=== PATIENT | male | born 1970 | race African-American/Black ===

== ENCOUNTER 2023-07-10 19:12 | Emergency (ER) | payer BC, OTHER ==
[~2023-07-10 19:12] MED LIST: Iopamidol-370 76% 500 ML MDV (1 ML CHARGE) ONE
[2023-07-10 19:46] LABS: #Basophils Less than 0.03 10x3/uL (0.0-0.2); %Basophils 0.2 % (0.0-1.0); %Lymphocytes 43.9 % (21.0-51.0); %Monocytes 7.6 % (0.0-10.0); %Neutrophils 46.8 % (42.0-75.0); Hematocrit 44.2 % (42.0-52.0); Hemoglobin 14.9 g/dL (14.0-18.0); Mean Corpuscular HGB CONC 33.7 g/dL (32.0-36.0); Mean Corpuscular Hemoglobin 26.9 pg (27.0-31.0); Mean Corpuscular Volume 79.9 fL (78.0-98.0); Mean Platelet Volume 11.6 fL (7.4-10.4); Platelet Count 179 10x3/uL (130-400); RBC Distribution Width 13.8 % (11.5-14.5); Red Blood Cell (RBC) Count 5.53 mill/uL (4.70-6.10)
[2023-07-10 20:06] LABS: ALT (SGPT) 14 U/L (8-55); AST (SGOT) 16 U/L (5-34); Albumin 4.1 g/dL (3.5-5.0); Alkaline Phosphatase 81 U/L (40-110); Anion Gap 14 mmol/L (10-20); BUN (Urea Nitrogen) 24 mg/dL (8.4-25.7); Bilirubin, Total 0.5 mg/dL (0.2-1.2); Calc. Creatinine Clearance 0 mL/min (70-130); Calcium 9.6 mg/dL (7.8-10.44); Carbon Dioxide 21 mmol/L (22-29); Chloride 104 mmol/L (98-107); Estimated GFR 56; Globulin 3.1 g/dL (2.4-3.5); Glucose 357 mg/dL (70-105); Potassium 4.3 mmol/L (3.5-5.1); Protein, Total 7.2 g/dL (6.0-8.3); Sodium 135 mmol/L (136-145)
== END 2023-07-10 22:00 | disposition home or self-care (01) ==
LOC: ERS 19:12
DX: M25.512 Pain in left shoulder (principal); V49.9XXA Car occupant (driver) (passenger) injured in unspecified traffic accident, initial encounter; W22.11XA Striking against or struck by driver side automobile airbag, initial encounter
CPT/HCPCS: 70450; 71045; 71260; 72125; 74177; 80053; 85025; Q9967